=== PATIENT | female | born 1955 | race Caucasian/White ===

== ENCOUNTER 2017-05-23 12:37 | Outpatient (CLI) | payer OTHER ==
--- NOTE | 2017-05-24 11:27 | Mammography Report ---
DIGITAL SCREENING MAMMOGRAM: 05/23/2017 COMPARISON: 06/21/2015, 11/07/2013, 10/28/2013, 09/30/2012, 09/11/2011, 09/08/2010, 08/20/2009, and 01/02/2008. TECHNIQUE: Bilateral digital CC and MLO projections. FINDINGS: There is scattered fibroglandular density. There is no dominant mass, architectural disto rtion, suspicious microcalcifications, skin thickening, or significant interval change. IMPRESSION: NEGATIVE. BIRADS CATEGORY 1. SUGGEST RETURN TO ROUTINE SCREENING IN 12 MONTHS. STANDARD QUALIFYING STATEMENTS 1. This examination was reviewed with the aid of Computer-Aided Detection (CAD). 2. A negative or benign imaging report should not delay biopsy if clinically suspicious findings are present. Consider surgical consultation if warranted. More than 5% of cancers are not identified by i maging. 3. Dense breasts may obscure an underlying neoplasm. JOB #: [id number] EXT JOB #:[id number]
== END 2017-05-23 12:38 | disposition home or self-care (01) ==
LOC: DI 12:37
PROVIDERS: ATTEND Internal Medicine
DX: Z12.31 Encounter for screening mammogram for malignant neoplasm of breast (principal)
CPT/HCPCS: 77067

== ENCOUNTER 2018-06-05 15:12 | Outpatient (CLI) | payer OTHER ==
--- NOTE | 2018-06-06 10:44 | Mammography Report ---
Reason: SCREENING MAMMO Procedure Date: 06/05/2018 Accession Number: [id number] / [id number] Procedure: RYAN - Screening Mammo Dig Bilat CPT Code: FULL RESULT: EXAM: Screening Mammo Dig Bilat DATE: 06/05/2018 3:59 PM CLINICAL HISTORY: 62 year-old nulliparous female with history of benign breast cyst drainage and multiple biopsies. TECHNIQUE: Bilateral CC and MLO views were obtained. COMPARISON: 05/23/2017, 06/21/2015, 11/07/2013, 10/28/2013. FINDINGS: The breasts demonstrate scattered fibroglandular densities bilaterally. No suspicious masses, clustered microcalcifications, or regions of architectural distortion are identified. IMPRESSION: Negative examination RECOMMENDATION: Routine annual screening unless otherwise clinically indicated. BIRADS CATEGORY 1: Negative STANDARD QUALIFYING STATEMENTS: 1. This examination was not reviewed with the aid of Computer-Aided Detection (CAD). 2. A negative or benign imaging report should not delay biopsy if clinically suspicious findings are present. Consider surgical consultation if warrented. More than 5% of cancers are not identified by imaging. 3. Dense breasts may obscure an underlying neoplasm. 4. This examination was reviewed without the aid of 3D breast imaging (tomosynthesis).
== END 2018-06-05 15:13 | disposition home or self-care (01) ==
LOC: DI 15:12
PROVIDERS: ATTEND Internal Medicine
DX: Z12.31 Encounter for screening mammogram for malignant neoplasm of breast (principal)
CPT/HCPCS: 77067

== ENCOUNTER 2019-06-30 13:39 | Outpatient (CLI) | payer OTHER ==
--- NOTE | 2019-07-01 10:08 | Mammography Report ---
Reason: ROUTINE MAMMO Procedure Date: 06/30/2019 Accession Number: [id number] / [id number] Procedure: RYAN - Screening Mammo w/Leroy CPT Code: FULL RESULT: EXAM: Screening Mammo w/Leroy DATE: 06/30/2019 3:00 PM CLINICAL HISTORY: Routine screening TECHNIQUE: (B) - Bilateral CC and MLO views were obtained. COMPARISON: 06/05/2018, 05/23/2017, 06/21/2015, 11/07/2013, 10/28/2013, 09/30/2012, 09/11/2011, 09/08/2010, and 08/20/2009 PARENCHYMAL PATTERN: (D) - The breasts demonstrate heterogeneously dense fibroglandular parenchyma bilaterally. FINDINGS: No significant interval change. There are no suspicious masses, calcifications, skin thickening, or areas of distortion. IMPRESSION: Negative examination. BI-RADS category 1. RECOMMENDATION: (ANNUAL) - Recommend routine annual screening mammography. BI-RADS CATEGORY: (1) - Negative. STANDARD QUALIFYING STATEMENTS: 1. This examination was not reviewed with the aid of Computer-Aided Detection (CAD). 2. A negative or benign imaging report should not preclude biopsy if clinically suspicious findings are present. 3. Dense breasts may obscure an underlying neoplasm. 4. This examination was reviewed with the aid of 3D breast imaging (tomosynthesis).
== END 2019-06-30 13:40 | disposition home or self-care (01) ==
LOC: DI 13:39
PROVIDERS: ATTEND Internal Medicine
DX: Z12.31 Encounter for screening mammogram for malignant neoplasm of breast (principal)
CPT/HCPCS: 77063; 77067

== ENCOUNTER 2021-01-11 17:02 | Outpatient (CLI) | payer OTHER | END 2021-01-11 17:03 | disposition home or self-care (01) | LOC: COV 17:02 | PROVIDERS: ATTEND Surgery | DX: Z01.812 Encounter for preprocedural laboratory examination (principal); K21.9 Gastro-esophageal reflux disease without esophagitis; Z86.010 Personal history of colon polyps; Z20.822 Contact with and (suspected) exposure to COVID-19 ==

== ENCOUNTER 2021-01-14 10:44 | Day surgery (SDC) | payer OTHER ==
[2021-01-14] MEDS ORDERED: LACTATED RINGERS 1,000 ML IV ONE (10:50)
[2021-01-14] MEDS ORDERED: LIDO GARGLE 30 ML BOTTLE ONE (12:27)
[2021-01-14] MEDS ORDERED: MIDAZOLAM 2 MG/2 ML VIAL ONE ×4 (13:10→13:46)
[2021-01-14] MEDS ORDERED: fentaNYL 250 MCG/5 ML VIAL ONE (13:11)
[2021-01-14] MEDS ORDERED: LIDO GARGLE 30 ML BOTTLE TOP ONE (13:18)
[2021-01-14] MEDS ORDERED: BENZOCAINE/TETRACAINE/BUTAMBEN 20 GM TOP ONE (13:19)
[2021-01-14] MEDS ORDERED: PROPOFOL 200 MG/20 ML VIAL IVP ONE (13:55)
[2021-01-14] MEDS ORDERED: LACTATED RINGERS 700 ML IV ONE (14:18)
[2021-01-14 14:50] VITALS: BP 135/70
--- NOTE | 2021-01-14 17:57 | ANESTHESIA POST OP EVALUATION ---
Anesthesia Post Eval - Post Anesthesia Eval Vitals: Last Vital Signs Temp 36.6 C 01/14/21 14:47 Pulse 65 01/14/21 14:47 Resp 16 01/14/21 14:47 BP 135/70 H 01/14/21 14:47 Pulse Ox 100 01/14/21 14:47 CV Function Including HR & BP: Stable Pain Control: Satisfactory Nausea & Vomiting: Negative Mental Status: Baseline Respiratory Status: Airway Patent Hydration Status: Satisfactory Anesthesia Complications: None
== END 2021-01-14 10:45 | disposition home or self-care (01) ==
LOC: SDS 10:44
PROVIDERS: ATTEND Surgery
PROC: 0DB38ZX Excision of Lower Esophagus, Via Natural or Artificial Opening Endoscopic, Diagnostic (ICD-10-PCS; principal; 2021-01-14 13:00)
DX: Z12.11 Encounter for screening for malignant neoplasm of colon (principal); K21.9 Gastro-esophageal reflux disease without esophagitis; K29.50 Unspecified chronic gastritis without bleeding; Z86.010 Personal history of colon polyps; I10 Essential (primary) hypertension; G47.30 Sleep apnea, unspecified; F41.9 Anxiety disorder, unspecified; F32.9 Major depressive disorder, single episode, unspecified; F40.240 Claustrophobia
CPT/HCPCS: 43239; A9270; G0105; J3010; J7120

== ENCOUNTER 2021-03-11 09:55 | Emergency (ER) | payer OTHER ==
--- NOTE | 2021-03-11 10:15 | ED Physician Documentation ---
PD HPI FOCAL NEURO - Stated complaint Stated Complaint: STROKE SYMPTOMS - Chief complaint Chief Complaint: Neuro - History obtained from History obtained from: Patient, Family - History of Present Illness Timing - onset: Enter time (0800), Today Timing - duration: Hours Timing - details: Abrupt onset Severity of deficit: Moderate Weakness: Arm, Leg, Left Associated symptoms: No: Headache, Nausea / vomiting, Seizure, Syncope, Fall, Head injury, Chest pain, Neck pain, Back pain, Fever Contributing factors: negative: Anticoagulated Baseline status: positive: A&OX3, ambulatory, indep Similar symptoms before: Has not had sx before Recently seen: Not recently seen - Additional information Additional information: 65-year-old female who is under a lot of stress removing some of her friends things from their home has developed acute left-sided weakness today on arising from bed at 8:00 in the morning. She states she is she was texting her sister earlier in the day did not feel that there was any abnormality she went to get out of bed and developed acute left-sided weakness. She has not had difficulty with her speech she comes in now for evaluation of strokelike symptoms. She continues to be weak on the left leg she has some improvement in the left arm. She denies any numbness other than her usual peripheral neuropathy PD PAST MEDICAL HISTORY - Present Medications Home Medications: Ambulatory Orders Medication Instructions Recorded Confirmed FLUoxetine [PROzac] 60 mg ORAL DAILY 01/14/21 03/11/21 Omeprazole 1 tab ORAL DAILY 01/14/21 01/14/21 Sucralfate [Carafate] 1 gm ORAL BID 01/14/21 01/14/21 Temazepam [Restoril] 1 tab ORAL DAILY 01/14/21 03/11/21 hydrOXYzine HCL [Hydroxyzine HCl] 1 tab ORAL DAILY 01/14/21 03/11/21 hydroCHLOROthiazide 1 tab ORAL DAILY 01/14/21 03/11/21 [Hydrochlorothiazide] Atorvastatin Calcium 1 tab PO DAILY 03/11/21 03/11/21 Buspirone HCl 1 tab PO DAILY 03/11/21 03/11/21 - Allergies Allergies/Adverse Reactions: Allergies Allergy/AdvReac Type Severity Reaction Status Date / Time sulfate ion AdvReac Respiratory Verified 03/11/21 10:39 NIHSS - Time Time: 10:10 - Level of Consciousness Level of consciousness: (0) Alert, Keenly responsive LOC Questions: (0) Answers both Q's correct LOC Commands: (0) Performs both correctly - Gaze Best Gaze: (0) Normal - Visual Visual: (0) No loss - Facial Palsy Facial Palsy: (0) Normal, symmetrical movement - Motor Arms (both separate) Motor Arm (right): (0) No drift Motor Arm (left): (0) No drift - Motor Legs (both separate) Motor Leg (right): (0) No drift Motor Leg (left): (1) Drift - Limb Ataxia Limb Ataxia: (2) Present in 2 limbs - Sensory Sensory: (0) Normal - Best Language Best Language: (0) No aphasia - Dysarthria Dysarthria: (0) Normal - Extinction and Inattention (formally neg Extinction and inattention: (0) No abnormality - Total Score/Results Total Score/Result: 3 Results - Vitals Vitals: Vital Signs - 24 hr 03/11/21 03/11/21 10:02 10:43 Temperature 36.9 C Heart Rate 83 70 Respiratory 18 15 Rate Blood Pressure 156/82 H 140/71 H O2 Saturation 99 100 Oxygen O2 Source Room air - EKG (time done) 1006 Rate: Rate (enter#) (69) Rhythm: NSR Ischemia: Normal ST segments Compare to prior EKG: Old EKG unavailable Computer interpretation: Agree with computer - Labs Labs: Laboratory Tests 03/11/21 03/11/21 03/11/21 10:05 10:06 10:06 WBC 7.6 RBC 4.75 Hgb 14.4 Hct 42.2 MCV 88.8 MCH 30.3 MCHC 34.1 RDW 13.0 Plt Count 327 MPV 10.5 Neut # (Auto) 4.6 Lymph # (Auto) 2.0 [place] # (Auto) 0.8 Eos # (Auto) 0.2 Baso # (Auto) 0.1 Absolute Nucleated RBC 0.00 Nucleated RBC % 0.0 Sodium 135 Potassium 4.3 Chloride 97 L Carbon Dioxide 27 Anion Gap 11.0 BUN 11 Creatinine 1.1 H Estimated GFR (MDRD) 50 L Glucose 130 H POC Whole Bld Glucose 116 H Calcium 9.6 Total Bilirubin 0.6 AST 22 ALT 23 Alkaline Phosphatase 63 Total Protein 7.9 Albumin 4.2 Globulin 3.7 Albumin/Globulin Ratio 1.1 Lipase 32 - Rads (name of study) CT head angio Radiology: Prelim report reviewed (Impression: No CT evidence of acute large territory infarct or other acute intracranial finding. No hemodynamically significant stenosis or occlusion of the major intracranial artery arterial vasculature.), EMP read indepedently, See rad report CT neck angio Radiology: Prelim report reviewed (Impression: No hemodynamically significant stenosis of the major extracranial arterial vasculature.), EMP read indepedently, See rad report Procedures - IVC sono (time) 1008 Bedside IVC sono: IVC measures (cm) (1.6), Euvolemia PD MEDICAL DECISION MAKING - ED course Complexity details: reviewed results, re-evaluated patient, considered differential, d/w patient, d/w family ED course: 65-year-old female with strokelike symptoms beginning at 8:00 this morning arrived to the emergency department with an NIH score of 3 with points off for drift of the left leg and cerebellar components to the upper and lower extremity. The patient has had improvement in her symptoms and now does not have a cerebellar component to the upper extremity and she has some improvement in the strength in the lower extremity as well. She is able to hold the leg up for a count of 5 but does have some drift associated with this. We were able to perform a CT angio of the head and neck here in the emergency department without acute findings. No large vessel occlusion and no specific areas of of concern. We are unable to perform the remainder of the patient's stroke up work-up this weekend as we do not have capability of doing MRI or echo. I have talked to the hospitalist at [facility] Dr. Carrera and he will accept the patient pending bed space availability. The patient presented with a low NIH stroke scale and had improvement within a 2-hour window in the department and administration of TPA was considered but thought to have risks outweighing benefit. This is discussed with the patient and her family and they are in agreement with conservative therapy. Departure - Departure Disposition: 02 Transfer Acute Care Hosp Clinical Impression: Cerebrovascular accident (CVA) Qualifiers: CVA mechanism: unspecified Qualified Code(s): I63.9 - Cerebral infarction, unspecified Condition: Stable
[2021-03-11] MEDS ORDERED: IOVERSOL 320 100 ML VIAL IVP ONE ×2 (10:17→13:10)
[2021-03-11 10:22] LABS: BASOPHILS # (AUTO) 0.1 10^3/uL (0.0-0.1); BASOPHILS % (AUTO) 0.7 %; EOSINOPHILS # (AUTO) 0.2 10^3/uL (0.0-0.7); EOSINOPHILS % (AUTO) 2.2 %; HCT - HEMATOCRIT 42.2 % (37.0-47.0); HGB - HEMOGLOBIN 14.4 g/dL (12.0-16.0); LYMPHOCYTES % (AUTO) 25.9 %; MEAN CORPUSCULAR HEMOGLOBIN 30.3 pg (27.0-31.0); MEAN CORPUSCULAR HGB CONC 34.1 g/dL (32.0-36.0); MEAN CORPUSCULAR VOLUME 88.8 fL (81.0-99.0); MEAN PLATELET VOLUME 10.5 fL (7.9-10.8); MONOCYTES # (AUTO) 0.8 10^3/uL (0.0-1.0); MONOCYTES % (AUTO) 10.1 %; NEUTROPHILS # (AUTO) 4.6 10^3/uL (1.5-6.6); NEUTROPHILS % (AUTO) 60.8 %; PLT - PLATELET COUNT 327 10^3/uL (130-450); RED BLOOD COUNT 4.75 10^6/uL (4.20-5.40); WHITE BLOOD COUNT 7.6 x10^3/uL (4.8-10.8)
[2021-03-11 10:34] LABS: ALBUMIN 4.2 g/dL (3.2-5.5); ALBUMIN/GLOBULIN RATIO 1.1 (1.0-2.2); BILIRUBIN,TOTAL 0.6 mg/dL (0.2-1.0); CALCIUM 9.6 mg/dL (8.5-10.3); CREATININE 1.1 mg/dL (0.4-1.0); POTASSIUM 4.3 mmol/L (3.5-5.0); TOTAL PROTEIN 7.9 g/dL (6.7-8.2)
--- NOTE | 2021-03-11 11:25 | CT Report ---
PROCEDURE: ANGIO HEAD W/WO INDICATIONS: Left-sided deficit/weakness CONTRAST: IV CONTRAST: Optiray 320 ml: 80 PO CONTRAST: *NO PO CONTRAST TECHNIQUE: Precontrast 4.5 mm thick angled axial sections acquired from the foramen magnum to the vertex. Afte r the administration of intravenous contrast, 1 mm thick sections acquired through the [place] of [place] is. Postcontrast 4.5 mm thick sections then re-acquired from the foramen magnum to the vertex. 3-di mensional oawzica-cmtovweee-nrrlkwcdon (MIP) and/or volume rendering reformats were acquired of the c entral intracranial vasculature. For radiation dose reduction, the following was used: automated ex posure control, adjustment of mA and/or kV according to patient size. COMPARISON: None FINDINGS: Image quality: Excellent. Anterior circulation: Intracranial internal carotid arteries are normal in size and flow. The flow within the paired anterior cerebral arteries is normal and symmetric. The flow within the middle cer ebral arteries is normal and symmetric. The anterior communicating artery is seen. No aneurysms are seen. Posterior circulation: Visualized portions of the vertebral arteries demonstrate normal caliber, and join to form a normal appearing basilar artery. Flow within the posterior cerebral arteries is norm al and symmetric. No aneurysms are seen. CSF spaces: Ventricles are normal in size and shape. Basal cisterns are patent. No extra-axial flu id collections. Brain: No midline shift. No intracranial bleeds or masses. Corrigan-white matter interface appears int act. Skull and face: Calvarium and facial bones appear intact, without suspicious lesions. Sinuses: Visualized sinuses and mastoids are clear. IMPRESSION: No CT evidence of acute large territory infarct or other acute intracranial finding. No hemodynamically significant stenosis or occlusion of the major intracranial arterial vasculature. Reviewed by: Morales Hancock MD on 03/11/2021 11:23 AM PDT Approved by: Morales Hancock MD on 03/11/2021 11:23 AM PDT Station ID: [id number]
--- NOTE | 2021-03-11 11:48 | CT Report ---
PROCEDURE: ANGIO NECK W INDICATIONS: L sided deficit CONTRAST: IV CONTRAST: Optiray 320 ml: 80 PO CONTRAST: *NO PO CONTRAST TECHNIQUE: After the administration of intravenous contrast, 1.5 mm axial sections acquired from the aortic arch to the [place] of [place]. Coronal 3-D maximum intensity projection (MIP) and/or volume rendering ref ormats were then performed. For radiation dose reduction, the following was used: automated exposur e control, adjustment of mA and/or kV according to patient size. COMPARISON: None. FINDINGS: Image quality: Excellent. Carotid system: Standard 3 vessel aortic arch anatomy. The common carotid arteries are widely patent. There is some atherosclerotic plaque and calcification in the distal right internal carotid artery j ust prior to and at the bifurcation without significant narrowing. Mild atherosclerotic plaquing calc ifications are present in the left carotid bulb and origin of the left extracranial internal carotid artery. The internal carotid arteries are widely patent within the neck. Posterior circulation: The origins of the vertebral arteries appear patent. The more superior porti ons of the vertebral arteries demonstrate normal course and caliber. They join to form a normal appe aring basilar artery. Soft tissues: Visualized neck soft tissues demonstrate no suspicious abnormalities. The thyroid is normal in size and there are no incidental findings. Bones: No suspicious bony lesions. Visualized cervical spine appears normally aligned. IMPRESSION: No hemodynamically significant stenosis of the major extracranial arterial vasculature. The estimate of stenosis included in the report of the imaging study was calculated using the NASCET method CLINICAL RECOMMENDATION STATEMENTS: In patients <35 years with an ITN detected on CT, MRI, or extrathyroidal ultrasound, the Committee re commends further evaluation with dedicated thyroid ultrasound if the nodule is ?1 cm and has no suspi cious imaging features, and if the patient has normal life expectancy. In patients ?35 years with an ITN detected on CT, MRI, or extrathyroidal ultrasound, the Committee re commends further evaluation with dedicated thyroid ultrasound if the nodule is ?1.5 cm and has no jc picious imaging features, and if the patient has normal life expectancy. (ACR, 2014) Reviewed by: Morales Hancock MD on 03/11/2021 11:45 AM PDT Approved by: Morales Hancock MD on 03/11/2021 11:45 AM PDT Station ID: [id number]
[2021-03-11] MEDS ORDERED: ASPIRIN CHEW 81 MG TABLET PO STA (12:35)
[2021-03-11 13:05] LABS: BILIRUBIN,URINE NEGATIVE (NEGATIVE); GLUCOSE, URINE (UA) NEGATIVE (NEGATIVE); KETONES,URINE (UA) NEGATIVE (NEGATIVE); LEUKOCYTE ESTERASE, URINE NEGATIVE (NEGATIVE); NITRITE,URINE NEGATIVE (NEGATIVE); OCCULT BLOOD,URINE NEGATIVE (NEGATIVE); PH,URINE 7.5 PH (5.0-7.5); PROTEIN,URINE NEGATIVE (NEGATIVE); UROBILINOGEN,URINE 0.2 (NORMAL) E.U./dL (NORMAL)
[2021-03-11 13:06] LABS: CLARITY,URINE CLEAR (CLEAR)
[2021-03-11 20:09] LABS: B. PARAPERTUSSIS- RESP PCR PAN NOT DETECTED; B. PERTUSSIS- RESP PCR PANEL NOT DETECTED; C. PNEUMONIAE- RESP PCR PANEL NOT DETECTED; CORONAVIRUS 229E-RESP PCR NOT DETECTED; CORONAVIRUS HKU1-RESP PCR NOT DETECTED; CORONAVIRUS NL63-RESP PCR NOT DETECTED; CORONAVIRUS OC43-RESP PCR NOT DETECTED; HUMAN METAPNEUMOVIRUS NOT DETECTED; INFLUENZA A- RESP PCR PANEL NOT DETECTED; INFLUENZA B - RESP PCR PANEL NOT DETECTED; M. PNEUMONIAE- RESP PCR PANEL NOT DETECTED; PARAINFLUENZA VIRUS 1 NOT DETECTED; PARAINFLUENZA VIRUS 2 NOT DETECTED; PARAINFLUENZA VIRUS 3 NOT DETECTED; PARAINFLUENZA VIRUS 4 NOT DETECTED; RHINOVIRUS/ENTEROVIRUS NOT DETECTED; RSV- RESP PCR PANEL NOT DETECTED; SARS-CoV-2 -RESP PCR PANEL NOT DETECTED
[2021-03-11 21:05] VITALS: BP 133/75
== END 2021-03-11 21:37 | disposition short-term general hospital (02) ==
LOC: ED 09:55
DX: I63.9 Cerebral infarction, unspecified (principal); R29.703 NIHSS score 3; G62.9 Polyneuropathy, unspecified; Z20.822 Contact with and (suspected) exposure to COVID-19
CPT/HCPCS: 0202U; 36415; 70496; 70498; 80053; 81003; 83690; 85025; 93005; 99283; 99285; A9270; Q9967; 81001; 87086

== ENCOUNTER 2021-03-11 21:35 | Outpatient (CLI) | payer OTHER | END 2021-03-11 21:36 | disposition short-term general hospital (02) | LOC: EMS 21:35 | PROVIDERS: ATTEND Emergency Medicine | DX: Z76.89 Persons encountering health services in other specified circumstances (principal) | CPT/HCPCS: A0425; A0428 ==